=== PATIENT | male | born 1970 | race Caucasian/White ===

== ENCOUNTER 2018-11-01 10:07 | Emergency (ER) | payer OTHER ==
--- OUTSIDE RECORDS SUMMARY | 2018-11-01 10:09 | XMS REPORT ---
:1970 [facility] Address [address] [place] [address] Dr. Hill [address] [place] [id number] Care Team Providers Name Role Phone Unavailable Unavailable Unavailable Problems This patient has no known problems. Allergies, Adverse Reactions, Alerts This patient has no known allergies or adverse reactions. Medications This patient has no known medications.
[2018-11-01] MEDS ORDERED: HYDROCODONE/APAP 5/325 MG TAB ONE (11:01)
--- NOTE | 2018-11-01 12:18 | RAD REPORT ---
EXAM DESCRIPTION: RAD - Hand Right 3 View - 11/01/2018 11:50 am CLINICAL HISTORY: Right hand pain status post injury FINDINGS: No fracture or dislocation is seen.
--- NOTE | 2018-11-01 13:04 | EDPHYS ---
Physician Documentation [facility] Name: Demond Tavarez Age: 48 yrs Sex: Male : 1970 Arrival Date: 11/01/2018 Time: 10:11 Bed 19 Private MD: None, None ED Physician Aramis Cotto HPI: 11/01 11:04 This 48 yrs old Male presents to ER via Ambulatory with complaints of Fall ps1 Injury, Arm Pain. 11:04 patient had FOOSH injury to R hand while carrying an AC unit. No LOC. R hand dominant. ps1 Pain to 5th MCP. Mild swelling. Took ibuprofen yesterday, still in moderate pain described as throbbing. Decreased ROM 2/2 pain. Historical: - Allergies: 10:18 No Known Allergies; aj - Immunization history:: Adult Immunizations up to date. - Social history:: Smoking status: Patient/guardian denies using tobacco. - Ebola Screening: : No symptoms or risks identified at this time. ROS: 11:04 Constitutional: Negative for fever, chills, and weight loss, Eyes: Negative for injury, ps1 pain, redness, and discharge, Cardiovascular: Negative for chest pain, palpitations, and edema, Respiratory: Negative for shortness of breath, cough, wheezing, and pleuritic chest pain, Abdomen/GI: Negative for abdominal pain, nausea, vomiting, diarrhea, and constipation, Skin: Negative for injury, rash, and discoloration, Neuro: Negative for headache, weakness, numbness, tingling, and seizure. 11:04 MS/extremity: Positive for injury or acute deformity, swelling, tenderness, of the dorsum of right hand. Exam: 11:04 Constitutional: This is a well developed, well nourished patient who is awake, alert, ps1 and in no acute distress. Head/Face: Normocephalic, atraumatic. Eyes: Pupils equal round and reactive to light, extra-ocular motions intact. Lids and lashes normal. Conjunctiva and sclera are non-icteric and not injected. Chest/axilla: Normal chest wall appearance and motion. Nontender with no deformity. No lesions are appreciated. Cardiovascular: Regular rate and rhythm. No gallops, murmurs, or rubs. Normal PMI, no JVD. No pulse deficits. Respiratory: Lungs have equal breath sounds bilaterally, clear to auscultation and percussion. No rales, rhonchi or wheezes noted. No increased work of breathing, no retractions or nasal flaring. Abdomen/GI: Soft, non-tender, with normal bowel sounds. No distension or tympany. No guarding or rebound. No evidence of tenderness throughout. 11:04 Musculoskeletal/extremity: Extremities: grossly normal except: noted in the dorsum of right hand: decreased ROM, pain, tenderness, There is no evidence of decreased perfusion. Has good cap refill and NV intact. . Vital Signs: 10:16 BP 153 / 88; Pulse 71; Resp 18; Temp 98.5; Pulse Ox 98% on R/A; Weight 82.1 kg; Height aj 5 ft. 1 in. (154.94 cm); 10:41 BP 144 / 88; Pulse 77; Resp 16; Temp 98.7; Pulse Ox 99% ; sv 10:16 Body Mass Index 34.20 (82.10 kg, 154.94 cm) aj [place] Coma Score: 10:16 Eye Response: spontaneous(4). Verbal Response: oriented(5). Motor Response: obeys aj commands(6). Total: 15. 10:41 Eye Response: spontaneous(4). Verbal Response: oriented(5). Motor Response: obeys sv commands(6). Total: 15. 12:35 Eye Response: spontaneous(4). Verbal Response: oriented(5). Motor Response: obeys sv commands(6). Total: 15. Trauma Score (Adult): 10:16 Eye Response: spontaneous(1); Verbal Response: oriented(1); Motor Response: obeys aj commands(2); Systolic BP: > 89 mm Hg(4); Respiratory Rate: 10 to 29 per min(4); [place] Score: 15; Trauma Score: 12 10:41 Eye Response: spontaneous(1); Verbal Response: oriented(1); Motor Response: obeys sv commands(2); Systolic BP: > 89 mm Hg(4); Respiratory Rate: 10 to 29 per min(4); [place] Score: 15; Trauma Score: 12 12:35 Eye Response: spontaneous(1); Verbal Response: oriented(1); Motor Response: obeys sv commands(2); Systolic BP: > 89 mm Hg(4); Respiratory Rate: 10 to 29 per min(4); [place] Score: 15; Trauma Score: 12 MDM: 10:42 Patient medically screened. ps1 11/01 10:43 Order name: Hand Right 3 View XRAY ps1 Administered Medications: 11:02 Drug: [place] 5 mg-325 mg 1 tabs Route: PO; sv 12:00 Follow up: Response: No adverse reaction sv Disposition: 11/01/18 12:04 Discharged to Home. Impression: Right hand pain. - Condition is Stable. - Discharge Instructions: Hand Pain. - Prescriptions for Anaprox DS 550 mg Oral Tablet - take 1 tablet by ORAL route every 12 hours As needed; 20 tablet. Tramadol 50 mg Oral Tablet - take 1 tablet by ORAL route every 8 hours as needed; 12 tablet. Medrol (Gautam) 4 mg Oral Tablets, Dose Pack - take 1 tablet by ORAL route as directed - follow package instructions; 1 packet. - Medication Reconciliation Form, Thank You Letter, Antibiotic Education, Prescription Opioid Use form. - Work release form (11/01/18 14:23). bd - Follow up: Emergency Department; When: As needed; Reason: Worsening of condition. Follow up: Private Physician; When: As needed; Reason: Further diagnostic work-up, Recheck today's complaints, Continuance of care, Re-evaluation by your physician. - Problem is new. - Symptoms are unchanged. Signatures: Dispatcher [employer] Zoe Beaver RN RN sv Myers, Amanda, RN RN aj Singer, Phillip, MD MD ps1 Dirrim, Barbara bd Corrections: (The following items were deleted from the chart) 12:35 12:04 11/01/2018 12:04 Discharged to Home. Impression: Right hand pain. Condition is sv Stable. Forms are Medication Reconciliation Form, Thank You Letter, Antibiotic Education, Prescription Opioid Use. Follow up: Emergency Department; When: As needed; Reason: Worsening of condition. Follow up: Private Physician; When: As needed; Reason: Further diagnostic work-up, Recheck today's complaints, Continuance of care, Re-evaluation by your physician. Problem is new. Symptoms are unchanged. ps1
--- NOTE | 2018-11-01 13:04 | ER ---
Nurse's Notes [facility] Name: Demond Tavarez Age: 48 yrs Sex: Male : 1970 Arrival Date: 11/01/2018 Time: 10:11 Bed 19 Private MD: None, None Diagnosis: Right hand pain Presentation: 11/01 10:16 Presenting complaint: Patient states: Reports right wrist pain since slip and fall last aj night. Rates pain 03/03. Care prior to arrival: None. Mechanism of Injury: Fall from standing position. Trauma event details: Injury occurred in the [facility], Injury occurred: at home. Injury occurred: October 31, 2018. 10:16 Acuity: PATTIE 4 aj 10:16 Method Of Arrival: Ambulatory aj 10:41 Transition of care: patient was not received from another setting of care. Onset of sv symptoms was October 31, 2018. Risk Assessment: Do you want to hurt yourself or someone else? Patient reports no desire to harm self or others. Initial Sepsis Screen: Does the patient meet any 2 criteria? No. Patient's initial sepsis screen is negative. Does the patient have a suspected source of infection? No. Patient's initial sepsis screen is negative. Trauma Activation: Not Applicable Physician: ED Physician; Name: ; Notified At: ; Arrived At: Physician: General Surgeon; Name: ; Notified At: ; Arrived At: Physician: Radiology; Name: ; Notified At: ; Arrived At: Physician: Respiratory; Name: ; Notified At: ; Arrived At: Physician: Lab; Name: ; Notified At: ; Arrived At: Historical: - Allergies: 10:18 No Known Allergies; aj - Immunization history:: Adult Immunizations up to date. - Social history:: Smoking status: Patient/guardian denies using tobacco. - Ebola Screening: : No symptoms or risks identified at this time. Screenin:41 Abuse screen: Denies threats or abuse. Denies injuries from another. Tuberculosis sv screening: No symptoms or risk factors identified. 10:41 Nutritional screening: No deficits noted. Fall Risk None identified. sv Primary Survey: 10:41 NO uncontrolled hemorrhage observed. Breathing/Chest: Respiratory pattern: regular, sv Respiratory effort: spontaneous, unlabored, Chest inspection: symmetrical rise and fall of the chest, chest rise and fall is asymmetrical. Circulation: Pulses: palpable right radial artery and left radial artery. Skin color: pink, Skin temperature: warm, dry. Disability Alert. Exposure/Environment: All clothing and personal items were removed. Forensic evidence collection is not deemed to be indicated at this time. Items placed in patient belonging bag. There is no evidence of uncontrolled external bleeding. No obvious injuries are noted at this time. 11:02 Reassessment Airway Airway Patent Oxygen No O2 Oral cavity Clear Trachea Midline sv Breathing/Chest Respiratory pattern Regular Respiratory effort Spontaneous Unlabored Chest inspection Symmetrical Circulation Pulses Palpable Color [place] Temperature Warm Dry Disability Alert. Secondary Survey: 10:41 HEENT: No deficits noted. Gastrointestinal: No deficits noted. Abdomen is. : No sv deficits noted. No signs and/or symptoms were reported regarding the genitourinary system. Musculoskeletal: Reports pain in medial aspect of right wrist and medial aspect of right hand. Assessment: 10:16 General: Appears in no apparent distress. comfortable, Behavior is calm, cooperative, aj appropriate for age. Pain: Complains of pain in dorsal aspect of right forearm, right wrist and palmar aspect of right forearm. Neuro: Level of Consciousness is awake, alert, obeys commands, Oriented to person, place, time, situation, Appropriate for age. Respiratory: Airway is patent Respiratory effort is even, unlabored, Respiratory pattern is regular, symmetrical. Derm: Skin is intact, is healthy with good turgor, Skin is pink, warm \T\ dry. normal. Vital Signs: 10:16 BP 153 / 88; Pulse 71; Resp 18; Temp 98.5; Pulse Ox 98% on R/A; Weight 82.1 kg; Height aj 5 ft. 1 in. (154.94 cm); 10:41 BP 144 / 88; Pulse 77; Resp 16; Temp 98.7; Pulse Ox 99% ; sv 10:16 Body Mass Index 34.20 (82.10 kg, 154.94 cm) aj [place] Coma Score: 10:16 Eye Response: spontaneous(4). Verbal Response: oriented(5). Motor Response: obeys aj commands(6). Total: 15. 10:41 Eye Response: spontaneous(4). Verbal Response: oriented(5). Motor Response: obeys sv commands(6). Total: 15. 12:35 Eye Response: spontaneous(4). Verbal Response: oriented(5). Motor Response: obeys sv commands(6). Total: 15. Trauma Score (Adult): 10:16 Eye Response: spontaneous(1); Verbal Response: oriented(1); Motor Response: obeys aj commands(2); Systolic BP: > 89 mm Hg(4); Respiratory Rate: 10 to 29 per min(4); [place] Score: 15; Trauma Score: 12 10:41 Eye Response: spontaneous(1); Verbal Response: oriented(1); Motor Response: obeys sv commands(2); Systolic BP: > 89 mm Hg(4); Respiratory Rate: 10 to 29 per min(4); [place] Score: 15; Trauma Score: 12 12:35 Eye Response: spontaneous(1); Verbal Response: oriented(1); Motor Response: obeys sv commands(2); Systolic BP: > 89 mm Hg(4); Respiratory Rate: 10 to 29 per min(4); [place] Score: 15; Trauma Score: 12 ED Course: 10:11 Patient arrived in ED. ag5 10:12 None, None is Private Physician. ag5 10:14 Aramis Cotto MD is Attending Physician. ps1 10:17 Triage completed. aj 10:18 Arm band placed on left wrist. Patient placed in an exam room. aj 10:40 Zoe Morgan RN is Primary Nurse. sv 10:41 Patient has correct armband on for positive identification. Bed in low position. sv 10:41 Patient maintains SpO2 saturation greater than 95% on room air. Thermoregulation: warm sv blanket given to patient. 11:06 Awaiting for x-ray. sv 11:45 X-ray completed. Portable x-ray completed in exam room. Patient tolerated procedure jb2 well. 12:25 Velcro wrist splint applied to right wrist. sv 12:35 No provider procedures requiring assistance completed. Patient did not have IV access sv during this emergency room visit. 13:07 Hand Right 3 View XRAY In Process Unspecified. EDMS Administered Medications: 11:02 Drug: [place] 5 mg-325 mg 1 tabs Route: PO; sv 12:00 Follow up: Response: No adverse reaction sv Intake: 10:41 PO: 0ml; Total: 0ml. sv 12:35 PO: 0ml; Total: 0ml. sv Output: 10:41 Urine: 0ml; Total: 0ml. sv 12:35 Urine: 0ml; Total: 0ml. sv Outcome: 12:04 Discharge ordered by . ps1 12:35 Patient left the ED. sv 12:35 Discharged to home ambulatory. sv 12:35 Condition: stable 12:35 Discharge instructions given to patient, Instructed on discharge instructions, follow up and referral plans. medication usage, Demonstrated understanding of instructions, follow-up care, medications, Prescriptions given X 3. 12:35 Patient's length of stay was not longer than 2 hours. Signatures: Dispatcher [employer] Zoe Beaver RN RN sv Myers, Amanda RN Malik Parsons Phillip, MD MD ps1 Gaskin, Ajare ag5 Corrections: (The following items were deleted from the chart) 11:08 10:41 BP 120 / 72; Pulse 77bpm; Resp 16bpm; Pulse Ox 99%; Temp 98.7F; sv sv
== END 2018-11-01 12:35 | disposition home or self-care (01) ==
LOC: ER 10:07
DX: M79.641 Pain in right hand (principal); W01.0XXA Fall on same level from slipping, tripping and stumbling without subsequent striking against object, initial encounter; Y93.89 Activity, other specified; Y92.9 Unspecified place or not applicable
CPT/HCPCS: 99284